=== PATIENT | female | born 1945 | race Two or more races ===

== ENCOUNTER 2021-11-02 14:13 | Outpatient (REF) | payer OTHER, SELFPAY ==
--- NOTE | ~2021-11-02 | MM_ITS ---
EXAMINATION: MM SCREENING DIGITAL BREAST TOMOSYNTHESIS, BILATERAL CLINICAL INFORMATION: Screening. Asymptomatic. The lifetime risk of breast cancer based on the Tyrer-Cuzick Model is 2.5%. COMPARISON: Mammography: February 11, 2019 and studies dating back to November 09, 2009 TECHNIQUE: Digital breast tomosynthesis is performed in both the craniocaudal and mediolateral oblique views along with computer-aided detection (CAD). Synthesized 2D images are generated from the tomosynthesis. FINDINGS: The breasts are heterogeneously dense, which may obscure small masses (ACR BI-RADS breast composition Category c). There are no significant masses, abnormal calcifications, or other abnormalities. There is stable parenchymal pattern with stable calcifications and circumscribed densities. MM/MM tomosynthesis screening BI IMPRESSION: No specific mammographic evidence to suggest malignancy. ASSESSMENT: BI-RADS 1: Negative RECOMMENDATION: Routine annual mammography screening. This patient's information was entered into a reminder system with a target due date for their next mammogram.
== END 2021-11-02 14:14 | disposition home or self-care (01) ==
LOC: HO.MAMMO 14:13
PROVIDERS: PCP Internal Medicine; Visit Provider Internal Medicine
DX: Z12.31 Encounter for screening mammogram for malignant neoplasm of breast (principal)
CPT/HCPCS: 77063; 77067

== ENCOUNTER 2022-11-08 14:02 | Outpatient (REF) | payer OTHER, SELFPAY ==
--- NOTE | ~2022-11-08 | MM_ITS ---
EXAMINATION: MM SCREENING DIGITAL BREAST TOMOSYNTHESIS, BILATERAL CLINICAL INFORMATION: Screening. Asymptomatic. COMPARISON: Mammography: This study is compared with prior exams dating back to 2017. TECHNIQUE: Digital breast tomosynthesis is performed in both the craniocaudal and mediolateral oblique views along with computer-aided detection (CAD). Synthesized 2D images are generated from the tomosynthesis. FINDINGS: There are scattered areas of fibroglandular density (ACR BI-RADS breast composition Category b). There are no significant masses, abnormal calcifications, or other abnormalities. There is a tissue marker present in the left breast from prior benign percutaneous biopsy. There are a few, bilateral, benign calcifications. MM/MM tomosynthesis screening BI IMPRESSION: No mammographic evidence of malignancy. ASSESSMENT: BI-RADS BI-RADS 2 - Benign Findings RECOMMENDATION: Routine annual mammography screening. 1 year F/U This examination should not preclude the clinical evaluation of a suspicious palpable abnormality. This patient's information was entered into a reminder system with a target due date for their next mammogram.
== END 2022-11-08 14:03 | disposition home or self-care (01) ==
LOC: HO.MAMMO 14:02
PROVIDERS: PCP Internal Medicine; Visit Provider Internal Medicine
DX: Z12.31 Encounter for screening mammogram for malignant neoplasm of breast (principal)
CPT/HCPCS: 77063; 77067

== ENCOUNTER → 2022-11-08 14:30 | Outpatient (BNV) | payer OTHER, SELFPAY | PROVIDERS: PCP Internal Medicine; Visit Provider Radiology Diagnostic Radiology | DX: Z12.31 Encounter for screening mammogram for malignant neoplasm of breast (principal) | CPT/HCPCS: 77063; 77067 ==

== ENCOUNTER 2023-07-20 09:43 | Outpatient (REF) | payer OTHER, SELFPAY ==
[2023-07-20 11:33] LABS: Hematocrit 37.3 % (37.0-47.0); Mean Corpuscular HGB Conc 32.2 g/dl (31.0-35.0); Mean Corpuscular Hemoglobin 28.5 pg (27.0-33.0); Mean Corpuscular Volume 88.6 fL (80.0-98.0); Mean Platelet Volume 10.8 fL (9.4-12.3); Platelet Count 296 X10*3/uL (160-400); Red Blood Count 4.21 X10*6/uL (4.20-5.50); Red Cell Distribution Width 13.7 % (11.0-16.0); White Blood Count 9.5 X10*3/uL (4.8-10.8)
[2023-07-20 12:25] LABS: Alanine Aminotransferase 15 U/L (0-31); Albumin Level 3.6 g/dL (3.5-5.0); Alkaline Phosphatase 79 U/L (39-117); Anion Gap 14 (12-20); Aspartate Amino Transferase 20 U/L (5-31); Bilirubin Total 0.4 mg/dL (0.0-1.0); Blood Urea Nitrogen 19 mg/dL (9-16); Calcium 10.3 mg/dL (8.4-10.2); Carbon Dioxide 29 mmol/L (22-29); Chloride 99 mmol/L (96-108); Cholesterol 147 mg/dL (<200); Estimated Glomerular Filt Rate 38; Glucose Random 261 mg/dL (60-115); HDL Cholesterol 46 mg/dL (>40); LDL Cholesterol Calculated 60 mg/dL (<100); Potassium 4.6 mmol/L (3.3-5.1); Sodium 137 mmol/L (135-145); Total Protein 6.8 g/dL (6.5-8.0); Triglycerides 206 mg/dL (<150)
[2023-07-20 14:22] LABS: Microalbum/Creatinine Ratio Ur 1403.9 ug/mg cr (<30)
== END 2023-07-20 09:44 | disposition home or self-care (01) ==
LOC: HO.HHCL 09:43
PROVIDERS: Visit Provider Internal Medicine
DX: I10 Essential (primary) hypertension (principal); E11.9 Type 2 diabetes mellitus without complications; Z79.4 Long term (current) use of insulin
CPT/HCPCS: 36415; 80053; 80061; 82043; 82570; 85027

== ENCOUNTER 2023-11-14 13:35 | Outpatient (REF) | payer OTHER, SELFPAY ==
--- NOTE | ~2023-11-14 | MM_ITS ---
EXAMINATION: MM SCREENING DIGITAL BREAST TOMOSYNTHESIS, BILATERAL CLINICAL INFORMATION: Screening. Asymptomatic. COMPARISON: Mammography: Comparison is made with available priors TECHNIQUE: Digital breast tomosynthesis is performed in both the craniocaudal and mediolateral oblique views along with computer-aided detection (CAD). Synthesized 2D images are generated from the tomosynthesis. FINDINGS: The breasts are heterogeneously dense, which may obscure small masses (ACR BI-RADS breast composition Category c). Left marker clip. There are no significant masses, abnormal calcifications, or other abnormalities. MM/MM tomosynthesis screening BI IMPRESSION: No mammographic evidence of malignancy. ASSESSMENT: BI-RADS BI-RADS 2 - Benign Findings RECOMMENDATION: Routine annual mammography screening. 1 year F/U This examination should not preclude the clinical evaluation of a suspicious palpable abnormality. This patient's information was entered into a reminder system with a target due date for their next mammogram. Electronically signed by: Earlene Marvin DO 12/08/2023 03:17 PM EDT
== END 2023-11-14 13:36 | disposition home or self-care (01) ==
LOC: HO.MAMMO 13:35
PROVIDERS: PCP Internal Medicine; Visit Provider Internal Medicine
DX: Z12.31 Encounter for screening mammogram for malignant neoplasm of breast (principal)
CPT/HCPCS: 77063; 77067

== ENCOUNTER → 2023-11-14 14:00 | Outpatient (BNV) | payer OTHER, SELFPAY | PROVIDERS: PCP Internal Medicine; Visit Provider Internal Medicine | DX: Z12.31 Encounter for screening mammogram for malignant neoplasm of breast (principal) | CPT/HCPCS: 77063; 77067 ==

== ENCOUNTER 2023-11-22 19:38 | Emergency (ER) | payer OTHER, SELFPAY ==
[2023-11-22 20:18] VITALS: BP 148/67; PULSE 74; RESP 20; TEMP 36.7; O2SAT 98; BMI 29.4
--- NOTE | 2023-11-23 01:09 | ED_ITS ---
HPI - Eye Problem General Chief complaint: Eye Problems Stated complaint: swelling around eye Time Seen by Provider: 11/23/23 01:02 Source: patient, family (Granddaughter) and motor vehicle parts interpreter Mode of arrival: ambulatory Limitations: no limitations History of Present Illness ED Provider: DR. Lance HPI Narrative: 78-year-old female brought in by her granddaughter for a concern of lateral periorbital swelling. Patient is scheduled to have cataract surgery on Monday 06:00 patient was instructed to put eyedrops before the surgery neighbor started to notice swelling both eyes, patient otherwise has no blurry vision, no eye pain, no headache, no diplopia. Related Data Allergies Allergy/AdvReac Type Severity Reaction Status Date / Time No Known Allergies Allergy Verified 11/22/23 20:21 [No Known Allergies*] Review of Systems Review of Systems: All other systems are reviewed and are negative Constitutional: Reports as per HPI and Reports no additional constitutional complaints Eyes: Reports as per HPI and Reports no additional eye complaints Reports system reviewed and no additional complaints, except as documented Cardiovascular: Reports as per HPI and Reports no additional cardiovascular complaints Respiratory: Reports as per HPI and Reports no additional respiratory complaints Gastrointestinal: Reports as per HPI and Reports no additional gastrointestinal complaints Genitourinary: Reports no additional female genitourinary complaints Musculoskeletal: Reports no additional musculoskeletal complaints Skin/Breast: Reports system reviewed and no additional complaints, except as docu Psychiatric: Reports no additional psychiatric complaints Endocrine: Reports no additional endocrine complaints Hematologic/Lymphatic: Reports no additional hematologic/lymphatic complaints Allergic/Immunologic: Reports no additional allergic/immunologic complaints Reports system reviewed and no additional complaints, except as documented and Reports Abnormal speech present [facility] Social History Social History Advance Directives: Yes Advance Directives Information Provided: No Advance Directives on File: No Physical Exam Vital Signs: Vital Signs: Last Vital Signs Temp 98.1 F 11/22/23 20:18 Pulse 74 11/22/23 20:18 Resp 20 11/22/23 20:18 BP 148/67 H 11/22/23 20:18 Pulse Ox 98 11/22/23 20:18 O2 Del Method Room Air 11/22/23 20:18 BMI result Body Mass Index 29.4 Vital signs have been reviewed and appear to be correct. Blood pressure elevated. Heart rate normal. Respiratory rate normal. Temperature normal. Oxygen saturation normal. Appearance: Alert. Oriented X3. No acute distress. Head: Normal external exam. Normocephalic. Atraumatic. No [place] signs noted. No raccoon eyes noted Eyes: PERRLA. EOMI. Conjunctiva and sclera normal. Eyelids normal. VA 20/70 bilaterly with correction. ENT: TM's Normal. Pharynx normal. Uvula midline. Moist mucous membranes. No trismus noted. No drooling noted. No muffled voice noted. Neck: Normal inspection. Neck supple. FROM. No adenopathy. Thyroid Normal. No meningeal signs. No neck mass noted. CVS: Normal heart rate and rhythm. Heart sound normal. No murmurs noted. Pulses normal throughout. Respiratory: No respiratory distress. Painless inspiration. Breath sounds normal. No wheezes/rales/rhonchi noted. Chest nontender. No accessory muscle usage noted or decreased air movement noted. Abdomen: Soft and nontender. Bowel sounds normal in all 4 quadrants. No distention noted. No organomegaly noted. No visible injury noted. Back: No CVA tenderness. Full range of motion noted. Skin: Skin warm and dry. Normal skin color. Normal skin turgor. No rashes/lesions/lacerations noted. Extremities: No lower extremity edema. Extremities exhibit normal range of motion. Extremities nontender. Neuro: Oriented X 3. Cranial nerve exam: II-XII are grossly intact No motor deficit. No sensory deficit. Reflexes normal. Course Reevaluation(s) Reevaluation #1: Bilateral periorbital swelling without any visual change patient is scheduled to have right cataract surgery in 2 days, no change in visual acuity. Time: 01:17 Medical Decision Making Differential Diagnosis Differential Diagnoses: The differential diagnosis associated with the presentation includes (Periorbital swelling, visual disturbance.) Admission/Observation Consideration of admission/observation: Escalation of care including admission/observation considered Discharge Plan Discharge Clinical Impression: Periorbital swelling Patient Disposition: Home, Self-Care Instructions: Cataract Removal (DC) Additional Instructions: Keep your appointment with your eye surgeon in 2 days. Print Language: Syriac
[2023-11-23 01:21] VITALS: BP 138/64; PULSE 71; RESP 18; TEMP 36.9; O2SAT 99
== END 2023-11-23 01:27 | disposition home or self-care (01) ==
PROVIDERS: Emergency Provider Emergency Medicine; PCP Internal Medicine
DX: H57.89 Other specified disorders of eye and adnexa (principal)
CPT/HCPCS: 99283

== ENCOUNTER 2024-06-28 08:13 | Outpatient (REF) | payer OTHER, SELFPAY ==
[2024-06-28 12:17] LABS: Alanine Aminotransferase 14 U/L (0-31); Albumin Level 3.7 g/dL (3.5-5.0); Alkaline Phosphatase 86 U/L (39-117); Anion Gap 11 (12-20); Aspartate Amino Transferase 22 U/L (5-31); Bilirubin Total 0.5 mg/dL (0.0-1.0); Blood Urea Nitrogen 16 mg/dL (9-16); Calcium 9.6 mg/dL (8.4-10.2); Carbon Dioxide 29 mmol/L (22-29); Chloride 106 mmol/L (96-108); Cholesterol 125 mg/dL (<200); Estimated Glomerular Filt Rate 49; Glucose Random 105 mg/dL (60-115); HDL Cholesterol 44 mg/dL (>40); LDL Cholesterol Calculated 55 mg/dL (<100); Potassium 4.8 mmol/L (3.3-5.1); Sodium 141 mmol/L (135-145); Triglycerides 131 mg/dL (<150)
[2024-06-28 12:23] LABS: Syphilis Screen Nonreactive (Nonreactive)
[2024-06-28 12:33] LABS: Folate 9.3 ng/mL (> or = 4.0); Vitamin B12 309 pg/mL (200-900)
== END 2024-06-28 08:14 | disposition home or self-care (01) ==
LOC: HO.HHCL 08:13
PROVIDERS: Visit Provider Internal Medicine
DX: I10 Essential (primary) hypertension (principal); E78.2 Mixed hyperlipidemia; R68.89 Other general symptoms and signs; E11.9 Type 2 diabetes mellitus without complications; Z79.4 Long term (current) use of insulin
CPT/HCPCS: 36415; 80053; 80061; 82607; 82746; 86780

== ENCOUNTER 2024-09-27 14:44 | Outpatient (REF) | payer OTHER, SELFPAY ==
--- NOTE | ~2024-09-27 | XR_ITS ---
EXAMINATION: XR HAND, RIGHT CLINICAL INFORMATION: pain and swelling of R fifth finger MCP and PIP COMPARISON: None available. TECHNIQUE: PA, lateral, and oblique views of the right hand. FINDINGS: No fracture, dislocation, or suspicious bone lesion. There is normal alignment. Calcification of the joint capsule of the fifth digit PIP joint, suggesting acute calcific periarthritis. There is a periarticular erosion in the third digit DIP joint with preservation of the joint space. This is nonspecific. No additional erosions are identified. Joint spaces otherwise preserved. Carpal bones are intact and normally aligned. No arthritic changes in the carpus. No blunting of the ulnar styloid. There is mild soft tissue swelling of the fifth MCP joint. Soft tissues are otherwise normal. XR/XR hand RT min 3V IMPRESSION: 1. 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 2. Periarticular erosion in the third digit DIP joint. This is nonspecific. 3. There are no additional erosions are significant arthropathy within the hand and wrist. 4. There is soft tissue swelling overlying the fifth digit MCP joint. Electronically signed by: Zaid Lewis MD 09/27/2024 03:01 PM EDT
== END 2024-09-27 14:45 | disposition home or self-care (01) ==
LOC: HO.HHCX 14:44
PROVIDERS: Visit Provider General Practice
DX: M79.644 Pain in right finger(s) (principal)
CPT/HCPCS: 73130

== ENCOUNTER → 2024-09-27 14:45 | Outpatient (BNV) | payer OTHER, SELFPAY | PROVIDERS: Visit Provider Radiology Diagnostic Radiology | DX: M65.241 Calcific tendinitis, right hand (principal) | CPT/HCPCS: 73130 ==

== ENCOUNTER 2025-01-16 11:21 | Emergency (ER) | payer OTHER, SELFPAY ==
[2025-01-16 11:28] VITALS: BP 145/56; PULSE 80; O2SAT 99
[2025-01-16 11:33] VITALS: BP 162/61; PULSE 72; RESP 14; TEMP 36.4; O2SAT 97; BMI 22.3
[2025-01-16 12:08] LABS: MANUAL DIFF FLAG NO
[2025-01-16 12:11] LABS: Hematocrit 37.5 % (37.0-47.0); Hemoglobin 11.8 g/dl (12.0-16.0); Imm Gran Abs Auto 0.06 X10*3/uL (0.00-0.03); Imm Gran Pct Auto 0.5 % (0.0-0.4); Lymphocytes Absolute Auto 1.4 X10*3/uL (1.2-4.9); Mean Corpuscular HGB Conc 31.5 g/dl (31.0-35.0); Mean Corpuscular Hemoglobin 27.4 pg (27.0-33.0); Mean Corpuscular Volume 87.0 fL (80.0-98.0); NRBC Abs Auto 0.000 X10*3/uL (0.0-0.012); NRBC Pct Auto 0.0 /100WBC (0.0-0.2); Platelet Count 325 X10*3/uL (160-400); Red Blood Count 4.31 X10*6/uL (4.20-5.50); White Blood Count 11.8 X10*3/uL (4.8-10.8)
[2025-01-16 12:24] LABS: Alanine Aminotransferase 11 U/L (0-31); Albumin Level 3.6 g/dL (3.5-5.0); Alkaline Phosphatase 92 U/L (39-117); Anion Gap 11 (12-20); Aspartate Amino Transferase 22 U/L (5-31); Blood Urea Nitrogen 19 mg/dL (9-16); Calcium 9.6 mg/dL (8.4-10.2); Carbon Dioxide 31 mmol/L (22-29); Chloride 103 mmol/L (96-108); Creatinine Clr Calc Pharmacy 32.6; Estimated Glomerular Filt Rate 46; Magnesium 1.6 mg/dL (1.6-2.6); Potassium 4.8 mmol/L (3.3-5.1); Sodium 140 mmol/L (135-145); Total Protein 6.6 g/dL (6.5-8.0)
--- NOTE | 2025-01-16 12:26 | ED_ITS ---
HPI - General Adult General Chief complaint: Nausea/Vomiting/Diarrhea Stated complaint: N/V ?FLU History of Present Illness ED Provider: Josafat Cronin MD HPI narrative: 79-year-old female who comes from home. She tells me that she had a brief episode of significant dizziness vertigo felt like the room was spinning around got sweaty. Had an episode of vomiting and diarrhea. No fall or trauma she says. The patient is a diabetic took her sugar at home it was 80 in the morning she had a small amount of bread and coffee. EMS gave little bit of saline 150 mL and Zofran. Patient is asymptomatic at this time comfortable no recent fever no headache no abdominal pain chest pain no prior vertigo denies ear pain or hearing loss Related Data Previous Rx's ?Medication ?Instructions ?Recorded meclizine 25 mg tablet 25 mg PO DAILY PRN dizziness #7 01/16/25 tabs Allergies Allergy/AdvReac Type Severity Reaction Status Date / Time No Known Allergies (No Known Allergy Verified 01/16/25 11:36 Allergies*) [facility] Social History Social History Advance Directives: Yes Advance Directives Information Provided: No Advance Directives on File: No Physical Exam ED Exam Exam: GENERAL: Well appearing. No apparent distress. Alert. HEAD/NECK: Normal to inspection. Neck supple. No cervical lymphadenopathy. EYES: Normal to inspection. Sclera non-icteric. ENMT: External nose normal. RESPIRATORY: Respiratory effort normal. Lungs clear to auscultation bilaterally. CARDIOVASCULAR: Regular rate. Normal rhythm. No murmur. No rubs. GI: Soft, non-tender, non-distended. No rebound or guarding. No masses palpable. No hepatosplenomegaly. SKIN: No jaundice. NEUROLOGICAL: Alert. PSYCHIATRIC: Alert. Appearance appropriate for situation. Attitude cooperative. OTHER: Comprehensive Neuro exam: Face symmetric, tongue midline, strong symmetric eye closure, pupils symmetric and reactive to light, intact sensation to the face throughout, intact strong face deviation and shoulder shrug. Sensation intact to light touch throughout * 5 out of 5 strength in bilateral upper extremities, 5 and 5 strength in lower extremities Vital Signs: Vital Signs - 24 hr 01/16/25 11:33 01/16/25 14:35 Temperature 97.6 F 97.6 F Pulse Rate 72 72 Respiratory Rate 14 14 Blood Pressure 162/61 H 162/61 H Pulse Oximetry 97 97 Oxygen Delivery Method Room Air Room Air BMI result Body Mass Index 22.3 Medical Decision Making Medical Decision Making MDM Narrative: Medical Decision Making: [age] female with transient dizziness associated with vomiting and diarrhea. Patient looks quite well and is asymptomatic now. No hearing loss tinnitus focal neurologic symptoms. No nystagmus or ataxia. Able to walk around. Seems like transient resolved but abrupt onset and significant vertigo consistent with peripheral vertigo etiology. Preliminary Favored Differential Diagnosis: Peripheral vertigo, unlikely central vertigo , vasovagal, dysrhythmia, electrolyte derangement or dehydration among additional considered etiologies Testing Interpreted Independently: ?Sinus rhythm rate 68 QTC 418. No ischemic changes Radiology or Lab testing Results Reviewed: ?See below for details Consults: ?See below for details Independent Historians/External Chart Reviews: ?See below for details Social Determinants of Health Impacting MDM/Planning: ?See below for details Lab Data 01/16/25 12:04 01/16/25 12:04 Labs: Lab Results 01/16/25 Range/Units 12:04 WBC 11.8 H (4.8-10.8) X10*3/uL RBC 4.31 (4.20-5.50) X10*6/uL Hgb 11.8 L (12.0-16.0) g/dl Hct 37.5 (37.0-47.0) % MCV 87.0 (80.0-98.0) fL MCH 27.4 (27.0-33.0) pg MCHC 31.5 (31.0-35.0) g/dl RDW 13.6 (11.0-16.0) % Plt Count 325 (160-400) X10*3/uL MPV 10.1 (9.4-12.3) fL Immature Gran % (Auto) 0.5 H (0.0-0.4) % Neut % (Auto) 82.8 H (45-73) % Lymph % (Auto) 11.8 L (20-40) % Hendry % (Auto) 3.7 (2-11) % Eos % (Auto) 0.8 (0-4) % Baso % (Auto) 0.4 (0-2) % Lymph # (Auto) 1.4 (1.2-4.9) X10*3/uL Hendry # (Auto) 0.4 (0.1-1.2) X10*3/uL Eos # (Auto) 0.1 (0.0-0.4) X10*3/uL Baso # (Auto) 0.1 (0.0-0.2) X10*3/uL Abs Immat Gran (auto) 0.06 H (0.00-0.03) X10*3/uL Absolute Neuts (auto) 9.7 H (2.0-8.3) x10*3/uL Absolute Nucleated RBC 0.000 (0.0-0.012) X10*3/uL Nucleated RBC % (auto) 0.0 (0.0-0.2) /100WBC Sodium 140 (135-145) mmol/L Potassium 4.8 (3.3-5.1) mmol/L Chloride 103 (96-108) mmol/L Carbon Dioxide 31 H (22-29) mmol/L Anion Gap 11 L (12-20) BUN 19 H (9-16) mg/dL Creatinine 1.14 (0.5-1.4) mg/dL Estim Creat Clear Calc 32.6 Estimated GFR 46 Random Glucose 157 H (60-115) mg/dL Calcium 9.6 (8.4-10.2) mg/dL Magnesium 1.6 (1.6-2.6) mg/dL Total Bilirubin 0.3 (0.0-1.0) mg/dL AST 22 (5-31) U/L ALT 11 (0-31) U/L Alkaline Phosphatase 92 (39-117) U/L Total Protein 6.6 (6.5-8.0) g/dL Albumin 3.6 (3.5-5.0) g/dL Influenza Type A (PCR) NEGATIVE (Negative) Influenza Type B (PCR) NEGATIVE (Negative) RSV RNA Qual (PCR) NEGATIVE (Negative) SARS-CoV-2 RNA (RT-PCR) NEGATIVE (Negative) Discharge Plan Discharge Clinical Impression: Dehydration, Vertigo Patient Disposition: Home, Self-Care Instructions: Dehydration (DC), Vertigo (ED) Additional Instructions: Call your primary doctor for follow up. Take meclizine only as significant vertigo. Rest in a dark room and after the meclizine you stay hydrated. If you develop inability to walk off balance severe headache return back to emergency department. Prescriptions: New meclizine 25 mg tablet 25 mg PO DAILY PRN (Reason: dizziness) Qty: 7 0RF Interventions: ED Discharge Assessment Last Done: 01/16/25 14:35 Discharge Date/Time: 01/16/25 14:36 Print Language: Nepali
--- NOTE | 2025-01-16 12:28 | ECG_ITS ---
Test Reason : NEAR SYNCOPE Blood Pressure : */* mmHG Vent. Rate : 68 BPM Atrial Rate : 68 BPM P-R Int : 128 ms QRS Dur : 70 ms QT Int : 394 ms P-R-T Axes : * -14 -18 degrees QTcB Int : 418 ms Normal sinus rhythm Nonspecific ST and T wave abnormality Abnormal ECG When compared with ECG of 19-Feb-2015 09:55, No significant change was found Referred By: Josafat Cronin Electronically Signed By: EULALIA SANTOS
[2025-01-16 12:48] LABS: Resp Syncy Virus RNA Qual PCR NEGATIVE (Negative); SARS COV2 PCR INHOUSE NEGATIVE (Negative)
[2025-01-16 14:35] VITALS: BP 162/61; PULSE 72; RESP 14; TEMP 36.4; O2SAT 97
--- OUTSIDE RECORDS SUMMARY | 2025-01-16 14:58 | XMS_ITS | Encounter Summary ---
Author Organization [employer] Address [address] [place] [address] Care Team Providers Care Lead Ingot Molder Name Role Phone Bradly Craig MD Primary Care Provide r Margaret Murphy PharmD Unavailable [phone] Reason for Visit * Reason Comments Med Refill Encounter Details Date Type Department Care Team ([facility] st Contact Info) Description 05/10/2024 Refill [facility] [address] [place], [place] [phone] Bradly Craig MD [address] [place], [place] [phone] Type 2 diabetes mellitus without complication, with long-term current use of insulin ([facility]) Social History Tobacco Use Types Packs/Day Years Used Date Smoking Tobacco: Never Passive Smoke Exposure: Never Smokeless Tobacco: Never Depression Answer Date Recorded Patient Health Questionnaire-9 Score 0 05/14/2024 Patient Health Questionnaire-9 Score 0 05/14/2024 Last PHQ-9: Questionnaire Data Not on file 0 05/14/2024 Housing Stability Answer Date Recorded What is your housing situation today? I have georgina corral 07/20/[address] you li ve. Do you have problems with any of the following? None of the above 07/20/2023 Food Insecurity Answer Date Recorded Within the past 12 months, y ou worried that your food would run out before you got money to buy more: Never True 07/20/2023 Within the past 12 months,th e food you bought just didn't last and you didn't have enough money to get more: Never True 04/2023 Transportation Answer Date Recorded In the past 12 months, has l ack of transportation kept you from medical appts, meetings, work or from getting things needed for daily living? No 07/20/2023 Utilities Answer Date Recorded In the past 12 months, has t he electric, gas, oil or water company threatened to shut off services in your home? No 07/20/2023 Depression Answer Date Recorded Patient Health Questionnaire-2 Score 0 05/14/2024 Internet Access Answer Date Recorded Internet Access Q1 No 05/14/2024 Internet Access Q2 Not on file 05/14/2024 Comments Unknown Sex and Gender Information Value Date Recorded Sex Assigned at Female 01/17/2022 10:14 AM EDT Legal Sex Female 10:14 AM EDT Gender Identity Female 01/17/2022 10:14 AM EDT Sexual Orientation Choose not to disclose 2021 10:14 AM EDT documented as of this encounter Plan of Treatment Not on file documented as of this encounter Visit Diagnoses Diagnosis Type 2 diabetes mellitus without complication, with long-term current use of insulin (HCC) documented in this encounter Additional Health Concerns Assessment Noted Time PHQ-9 Depression Total Score: 0 07/20/19 24 10:05 AM EDT documented as of this encounter Care Teams Lead Ingot Molder Relationship Specialty Start Date End Date Bradly Craig MD [address] [place] [address] PCP - General Internal Medicine 10/30/13 Margaret Murphy PharmD [address] [place] [address] Pharmacist Internal Medicine 04/22/24 12/10/24 documented as of this encounter
--- OUTSIDE RECORDS SUMMARY | 2025-01-16 14:58 | XMS_ITS | Patient Health Record ---
Author Organization [facility] Address [address] [place] [address] Care Team Providers Care Tube Draw Helper Name Role Phone Kennedi Mendoza MD, Bradly Primary Care Provide r Seth Rasmussen Unavailable [phone] Reason For Referral No Information Medications Medication SIG (Take, Route, Frequency, Duration) Notes Start Date End Date Status Oyster Shell Calcium + D 500-125 MG-IU 1 tablet with food Orally Once a day Active metFORMIN HCl 500 MG 1 tablet with meals Orally Twice a day Active Aspir-81 81 MG 1 tablet Orally Once a day Active Atenolol 50 MG 1 tablet Orally Once a day Active Lisinopril 40 MG 1 tablet Orally Once a day Active Simvastatin 40 MG 1 tablet in the evening Orally Once a day Active hydroCHLOROthiazide 25 MG 1 tablet in th e morning Orally Once a day Active NovoLog Mix 70/30 PenFill (70-30) 100 UNIT/ML as directed Subcutaneous QD Active Naproxen 500 MG 1 tablet Orally prn Active Immunizations Vaccine Route Administration Date Status Comme nts Flu vaccine no Preserv 3 and > Unknown 01/06/2016 Admin istered Social History Tobacco Use: Social History Observation Description Date Details (start date - stop date) Never Smoker NA - NA Tobacco Use/Smoking Question Answer Notes Patient is a nonsmoker Alcohol Screen Question Answer Notes Did you have a drink containing alcohol in the p ast year? No Points 0 Interpretation Negative Section Notes: Nonsmoker; sig alcohol Problems Problem Type SNOMED Code ICD Code Onset Dates Problem Status W/U Status Risk Notes Problem Screening for malignant neoplasm of colon (762917232) Encounter for screening for malignant neoplasm of colon (Z12.11) Active confirmed Problem Long-term current use of antiplatelet drug (854300139847954) Long-term use of aspirin therapy (Z79.82) Active confirmed Plan Of Treatment Future Test Test Name Order Date COLONOSCOPY 10/19/2016 Insurance Providers Payer Name Payer Address Payer Phone Subscriber Number Group Number Insured Name Patient Relationship to Insured Coverage Start Date Coverage End Date MEDICARE OF [place] [address] [place] [id number] BRIAN INGRAM Self - patient is the insured [facility] [address] [place] [address] [id number] JUAN JOSE BRIAN Self - patient is the insured Medical (General) History Medical History History ICD Code Denies VA,CVA,Lung disease,renal disease IDDM Hypertension Colonoscopy 04/2005--no polyps--diverticu losis and internal hemorrhoids Hyperlipidemia Surgical History Surgery Date(Month/Year) Breast biopsy---benign
--- OUTSIDE RECORDS SUMMARY | 2025-01-16 14:58 | XMS_ITS | Encounter Summary ---
Author Organization [email or web address] Address [address] [place] [address] Care Team Providers Care Asphalt Coater Name Role Phone Bradly Craig MD Primary Care Provide r Margaret Murphy PharmD Unavailable [phone] Encounter Details Date Type Department Care Team (Late st Contact Info) Description 03/22/2022 Orders Only [facility] [address] [place], [place] [phone] Sonia Branham LPN Social History Tobacco Use Types Packs/Day Years Used Date Smoking Tobacco: Never Assessed Comments Unknown Sex and Gender Information Value Date Recorded Sex Assigned at Female 01/17/2022 10:14 AM EDT Legal Sex Female 10:14 AM EDT Gender Identity Female 01/17/2022 10:14 AM EDT Sexual Orientation Choose not to disclose 2021 10:14 AM EDT documented as of this encounter Plan of Treatment Not on file documented as of this encounter Visit Diagnoses Not on filedocumented in this encounter Care Teams Asphalt Coater Relationship Specialty Start Date End Date Bradly Craig MD [address] [place] [id number] PCP - General Internal Medicine 10/30/13 Margaret Murphy, TonyaD [address] [place] [address] Pharmacist Internal Medicine 04/22/24 12/10/24 documented as of this encounter
--- OUTSIDE RECORDS SUMMARY | 2025-01-16 14:58 | XMS_ITS | Encounter Summary ---
Author Organization [employer] Address [address] [place] [address] Care Team Providers Care Employee Service Officer Name Role Phone Bradly Craig MD Primary Care Provide r Margaret Murphy PharmD Unavailable [phone] Encounter Details Date Type Department Care Team (Late st Contact Info) Description 08/30/2022 Orders Only [facility] [address] [place], [place] [id number] Sonia Branham LPN Social History Tobacco Use Types Packs/Day Years Used Date Smoking Tobacco: Never Smokeless Tobacco: Never Depression Answer Date Recorded Patient Health Questionnaire-9 Score 0 04/28/2022 Depression Answer Date Recorded Patient Health Questionnaire-2 Score 0 04/28/2022 Comments Unknown Sex and Gender Information Value Date Recorded Sex Assigned at Female 01/17/2022 10:14 AM EDT Legal Sex Female 10:14 AM EDT Gender Identity Female 01/17/2022 10:14 AM EDT Sexual Orientation Choose not to disclose 2021 10:14 AM EDT COVID-19 Exposure Response Date Recorded In the last 10 days, have ammy esposito been in contact with someone who was confirmed or suspected to have Coronavirus/COVID-19? No / Unsure 08/23/2022 9:50 AM EDT documented as of this encounter Plan of Treatment Not on file documented as of this encounter Visit Diagnoses Not on filedocumented in this encounter Additional Health Concerns Assessment Noted Time PHQ-9 Depression Total Score: 0 04/28/19 23 9:33 AM EST documented as of this encounter Care Teams Employee Service Officer Relationship Specialty Start Date End Date Bradly Craig MD [address] [place] [address] PCP - General Internal Medicine 10/30/13 Margaret Murphy PharmD [address] [place] [address] Pharmacist Internal Medicine 04/22/24 12/10/24 documented as of this encounter
--- OUTSIDE RECORDS SUMMARY | 2025-01-16 14:58 | XMS_ITS | Clinical Summary ---
Author Organization [employer] Address [address] [place] [address] Care Team Providers Care Log Preparer Name Role Phone Bradly Craig MD Primary Care Provide r Allergies Active Allergy Reactions Criticality Noted Date Comments Alendronate Unknown Medications prednisoLONE acetate (Pred-Forte) 1 % ophthalmic suspension INSTILL 1 DROP IN AFFECTED EYE(S) THREE TIMES DAILY STARTING 2 DAYS BEFORE SURGERY. 4 Active ketorolac (Acular) 0.5 % ophthalmic solution INSTILL 1 DROP IN RIGHT EYE THREE TIMES DAILY STARTING 2 DAYS BEFORE SURGERY 4 Active Lancets (OneTouch Delica Plus [id number]) miscIndications:Ty pe 2 diabetes mellitus without complication, unspecified whether manager terminal insulin use TEST BLOOD SUGAR THREE TIMES DAILY 100 each 11 4 Active metFORMIN XR (Glucophage-XR) 500 MG 24 hr tablet TAKE 1 TABLET BY MOUTH TWICE DAILY IN THE MORNING AND IN THE EVENING WITH FOOD 180 tablet 3 5 Active atorvastatin (Lipitor) 20 MG tabletIndications: Mixed hyperlipidemia TAKE 1 TABLET BY MOUTH EVERY MORNING 30 tablet 5 5 Active Blood Pressure kitIndications:Ess ential hypertension Check BP once a week 1 kit 5 Active amLODIPine (Norvasc) 5 MG tabletIndications: Essential hypertension Take 1 tablet (5 mg) by mouth in the morning. 30 tablet 6 5 Active Alcohol Swabs (Alcohol Prep) 70 % padsIndications:Ty pe 2 diabetes mellitus without complication, without long-term current use of insulin (HCC) TEST BLOOD SUGAR TWICE DAILY 100 each 11 5 Active Blood Pressure Monitoring (Omron 3 Series BP Monitor) device USE TO CHECK BLOOD PRESSURE ONCE A WEEK DIRECTED 5 Active Calcium Carb-Cholecalcifer ol (Oyster Shell Calcium w/D) 500-5 MG-MCG tabletIndications: Osteopenia, unspecified location TAKE 1 TABLET BY MOUTH TWICE DAILY IN THE MORNING AND IN THE EVENING 60 tablet 3 5 Active metoprolol succinate XL (Toprol-XL) 100 MG 24 hr tabletIndications: Essential hypertension Take 1 tablet (100 mg) by mouth Once per day. Do not crush or chew. 30 tablet 11 5 Active insulin degludec (Tresiba FlexTouch) 100 UNIT/ML injectionIndicatio ns:Type 2 diabetes mellitus without complication, with long-term current use of insulin ([facility]) Inject 8 Units under the skin at bedtime. 15 mL 1 5 Active glucose blood (OneTouch Verio) test stripIndications:T ype 2 diabetes mellitus without complication, with long-term current use of insulin ([facility]) Test blood sugar 3 times a day 100 each 11 5 026 Active insulin pen needle 32G x 4 mm misc Use to inject insulin 1 times daily 100 each 3 5 Active lisinopril 40 MG tabletIndications: Essential hypertension Take 1 tablet (40 mg) by mouth Once per day. 90 tablet 3 5 Active Blood Glucose Monitoring Suppl (Accu-Chek Guide) w/Device kit Check glucose TID 1 kit 5 Active glucose blood (Accu-Chek Guide Test) test strip Check Glucose TID 100 each 12 5 Active Accu-Chek Softclix Lancets lancets Use as instructed 100 each 12 5 Active Active Problems Problem Noted Date Diagnosed Date Finger pain, right 10/01/2024 Assessment & Plan (10/01/2024 8:45 AM EDT): Patient with xray demonstrative of acute calcific periarthritis. This is a self-limited condition and can be treated with OTC analgesia. She was also prescribed Bactrim in case of secondary infection. Long-term use of aspirin therapy 09/27/2024 Forgetfulness 05/14/2024 Assessment & Plan (05/14/2024 10:30 AM EST): We received notification from [facility] managed care director that patient was unable to recall 3 objects during her MME Plan: B12, Folate, Neurology evaluation CKD (chronic kidney disease) 11/17/2023 Preventative health care 04/27/2022 Assessment & Plan (07/20/2023 9:32 AM EDT): Mammogram: 11/02/2021 Normal Pap Smear: 07/23/12 given age she chooses not to continue Colonoscopy: 05/16/2005 Dr Wiseman Diverticulosis and Hemorrhoids, She was seen by Dr Wiseman 10/19/2016 for consideration of repeat Colorectal cancer screen, but pt REFUSED. Assessment & Plan (04/27/2022 5:20 PM EST): Mammogram: 11/02/2021 Normal Pap Smear: 07/23/12 given age she chooses not to continue Colonoscopy: 05/16/2005 Dr Wiseman Diverticulosis and Hemorrhoids, She was seen by Dr Wiseman 10/19/2016 for consideration of repeat Colorectal cancer screen, but pt REFUSED. Osteopenia 04/13/2017 Assessment & Plan (04/27/2022 5:18 PM EST): On Oscal plus vitamin D Essential hypertension 03/03/2015 Assessment & Plan (08/16/2024 11:30 AM EDT): Pt here for a f/u BP currently controlled She is on a regimen of: Metoprolol XL 100 mg po daily, Amlodipine 10 mg po daily and Lisinopril 40 mg po daily Most recent electrolytes, Bun and Creatinine were wnl. Lab Results Component Value Date NA 141 06/28/2024 NA 137 07/20/2023 K 4.8 06/28/2024 K 4.6 07/20/2023 CL 106 06/28/2024 CL 99 07/20/2023 BUN 16 06/28/2024 BUN 19 (H) 07/20/2023 CREATININE 1.09 06/28/2024 CREATININE 1.35 07/20/2023 patient advised to adhere to a low sodium diet, encouraged about medication compliance, counseled about weight loss. Plan: lower Amlodipine to 5 mg po daily due to c/o LE edema F/u 3 months Assessment & Plan (05/14/2024 10:26 AM EST): Pt here for a f/u BP currently controlled She is on a regimen of: Metoprolol XL 100 mg po daily, Amlodipine 10 mg po daily and Lisinopril 40 mg po daily Most recent electrolytes, Bun and Creatinine done on: 07/20/2023 were wnl. Lab Results Component Value Date NA 137 07/20/2023 NA 142 05/13/2022 K 4.6 07/20/2023 K 4.0 05/13/2022 CL 99 07/20/2023 CL 102 05/13/2022 BUN 19 (H) 07/20/2023 BUN 21 05/13/2022 CREATININE 1.35 07/20/2023 CREATININE 1.11 (H) 05/13/2022 Will repeat patient advised to adhere to a low sodium diet, encouraged about medication compliance, counseled about weight loss. Plan: Continue current regimen F/u 3 months Assessment & Plan (11/17/2023 6:27 PM EDT): BP today 148/70 -advised to check home BP at next apt And bring to next apt w PCP -apt w PCP 11/28/2023 scheduled already -will need to eval lisinopril use been currently px as 40 mg BID ? Assessment & Plan (08/31/2023 11:04 AM EDT): Pt here for a f/u BP currently uncontrolled She is on a regimen of: Atenolol 100 mg po daily, Hctz 25 mg po daily, Amlodipine 2.5 mg po daily and Lisinopril 40 mg po BID. Most recent electrolytes, Bun and Creatinine done on: 07/20/2023 were wnl. patient advised to adhere to a low sodium diet, encouraged about medication compliance, counseled about weight loss. Plan: Increase Amlodipine to 5 mg po daily. Pt referred to [facility] previously F/u 6 weeks Assessment & Plan (07/20/2023 9:26 AM EDT): Pt here for a f/u BP currently uncontrolled She is on a regimen of: Atenolol 100 mg po daily, Hctz 25 mg po daily and Lisinopril 40 mg po BID. Most recent electrolytes, Bun and Creatinine done on: 05/13/2022 were wnl.Today will order a repeat BMP patient advised to adhere to a low sodium diet, encouraged about medication compliance, counseled about weight loss. Plan: Obtain BMP, Refer [facility] for HTN. Add Amlodipine 2.5 mg po daily F/u 6 weeks Assessment & Plan (08/23/2022 10:17 AM EDT): Pt here for a f/u BP currently uncontrolled She is on a regimen of: Atenolol 75 mg po daily, Hctz 25 mg po daily and Lisinopril 40 mg po BID. Most recent electrolytes, Bun and Creatinine done on: 05/13/2022 were wnl. patient advised to adhere to a low sodium diet, encouraged about medication compliance, counseled about weight loss. Plan: Increase Atenolol to 100 mg po daily F/u 4 weeks Assessment & Plan (07/19/2022 11:08 AM EDT): Pt here for a f/u BP currently uncontrolled She is supposed to be on a regimen of: Atenolol 75 mg po daily, Hctz 25 mg po daily and Lisinopril 40 mg po BID. Most recent electrolytes, Bun and Creatinine done on: 05/13/2022 were wnl. Pt brought up to my attention that his med box does not have the 75 mg of Atenolol ( 1.5 tabs) only 1 tab, I reviewed his med box and that was indeed the case. I contacted our Pharmacy and they agreed to see patient today to rectify patient advised to adhere to a low sodium diet, encouraged about medication compliance, counseled about weight loss. Plan: No changes until she starts taking the 75 mg of Atenolol F/u 1 month Assessment & Plan (04/28/2022 9:59 AM EST): Pt here for a f/u BP currently uncontrolled She is on a regimen of: Atenolol 50 mg po daily, Hctz 25 mg po daily and Lisinopril 40 mg po BID. Plan: Increase Atenolol to 75 mg po daily Most recent electrolytes, Bun and Creatinine done on: 12/20/2021 were wnl. Will repeat patient advised to adhere to a low sodium diet, encouraged about medication compliance, counseled about weight loss. F/u 1 month Depressive disorder 11/08/2011 Adhesive capsulitis of shoulder 08/31/2011 Assessment & Plan (04/27/2022 5:19 PM EST): Pt was seen by Orthopaedic specialist on 01/04/2012 who diagnosed her with adhesive capsulitis and recommended PT, Pt underwent a manipulation under anesthesia on 04/10/2012. she was seen last by her orthopedic surgeon on 04/23/2012 Hyperlipidemia 08/31/2011 Assessment & Plan (08/16/2024 11:30 AM EDT): Pt here for a f/u Pt with elevated lipids. Most recent lipid profile from: Lab Results Component Value Date TRIG 131 06/28/2024 TRIG 206 (H) 07/20/2023 CHOL 125 06/28/2024 CHOL 147 07/20/2023 LDLCHOLCAL 55 06/28/2024 LDLCHOLCAL 60 07/20/2023 HDL 44 06/28/2024 HDL 46 07/20/2023 Currently on a regimen of: Atorvastatin 40 mg po qhs. Plan: Continue current regimen advised to try to adhere to a low cholesterol diet, counseled and educated about diet and exercise, Patient encouraged to come up with a personal goal for weight loss. Assessment & Plan (05/14/2024 10:28 AM EST): Pt here for a f/u Pt with elevated lipids. Most recent lipid profile from: Lab Results Component Value Date TRIG 206 (H) 07/20/2023 TRIG 113 05/13/2022 CHOL 147 07/20/2023 LDLCHOLCAL 60 07/20/2023 HDL 46 07/20/2023 Currently on a regimen of: Atorvastatin 40 mg po qhs. Plan: Repeat Lipid profile advised to try to adhere to a low cholesterol diet, counseled and educated about diet and exercise, Patient encouraged to come up with a personal goal for weight loss. Assessment & Plan (07/20/2023 9:28 AM EDT): Pt here for a f/u Pt with elevated lipids. Most recent lipid profile from: 12/20/2021 shows a total cholesterol of: 125 triglycerides of: 166 HDL of: 49 and LDL of: 52 Currently on a regimen of: Simvastatin 40 mg po qhs. Plan: Stop Simvastatin, start Atorvastatin 20 mg po daily ( I am starting patient on Amlodipine ) advised to try to adhere to a low cholesterol diet, counseled and educated about diet and exercise, Patient encouraged to come up with a personal goal for weight loss. Assessment & Plan (04/27/2022 5:18 PM EST): Pt here for a f/u Pt with elevated lipids. Most recent lipid profile from: 12/20/2021 shows a total cholesterol of: 125 triglycerides of: 166 HDL of: 49 and LDL of: 52 Currently on a regimen of: Simvastatin 40 mg po qhs. Given good control, will continue with current regimen. advised to try to adhere to a low cholesterol diet, counseled and educated about diet and exercise, Patient encouraged to come up with a personal goal for weight loss. Type 2 diabetes mellitus 08/31/2011 Assessment & Plan (08/16/2024 11:28 AM EDT): Pt is here for a f/u DM controlled she is on a regimen of: Tresiba Flex Touch 10 units sc q pm and Metformin XR 500 mg 1 tab po BID She did not bring her glucometer Hgb A1c 08/16/2024: 6.9 from 7.2 Plan: Continue current regimen Eye exam was last done on: 10/12/2023 Microalbumin checked on: 12/20/2021 was: 93.2 Pt is on an LUIS ALBERTO inhibitor. Foot check risk of zero Pt reports compliance with Asa 81 mg po daily Pt advised to: adhere to diabetic diet Check your blood sugars regularly Check your feet on a daily basis 3 months f/u Assessment & Plan (05/14/2024 11:04 AM EST): Pt is here for a f/u VNA mentioned pt has had low fastings as low as 51 she is on a regimen of: Tresiba Flex Touch 12 units sc q pm and Metformin XR 500 mg 1 tab po BID She did not bring her glucometer Hgb A1c 05/14/2024: 7.2 from 7.8 Plan: Continue current regimen, Continue to follow with [facility]. Lower Tresiba to 10 units subcutaneous qp,m Eye exam was last done on: 10/12/2023 Microalbumin checked on: 12/20/2021 was: 93.2 Pt is on an LUIS ALBERTO inhibitor. Foot check risk of zero Pt reports compliance with Asa 81 mg po daily Pt advised to: adhere to diabetic diet Check your blood sugars regularly Check your feet on a daily basis 3 months f/u Assessment & Plan (11/17/2023 6:28 PM EDT): -today capillary Hb1AC 8.8, CBG 263 , per pt at home CBGs in fasting max is 130 in fasting -increase humulin to 22 u in am<---20 and to 20 u in pm from 18 u -if GFR falls < 30 will need to dc metformin -apt w PCP 11/28/2023 scheduled already Assessment & Plan (08/31/2023 11:10 AM EDT): Pt is here for a f/u Glucometer today shows BG average of 111 she is on a regimen of: Novolin 70/30 16 units sc in am and 18 units sc q pm and Metformin XR 500 mg 1 tab po BID Hgb A1c 07/20/2023: 7.8 Plan: Continue current regimen Eye exam was last done on: 06/15/2017 Microalbumin checked on: 12/20/2021 was: 93.2 Pt is on an LUIS ALBERTO inhibitor. Foot check risk of zero Pt reports compliance with Asa 81 mg po daily Pt advised to: adhere to diabetic diet Check your blood sugars regularly Check your feet on a daily basis 3 months f/u Assessment & Plan (07/20/2023 9:30 AM EDT): Pt is here for a f/u Glucometer today shows BG average of 113 she is on a regimen of: Novolin 70/30 16 units sc in am and 18 units sc q pm and Metformin XR 500 mg 1 tab po BID Hgb A1c 07/20/2023: 7.8 Plan: Obtain BMP if GFR ok will increase the dose of the Metformin Eye exam was last done on: 06/15/2017 Microalbumin checked on: 12/20/2021 was: 93.2 Pt is on an LUIS ALBERTO inhibitor. Foot check risk of zero Pt reports compliance with Asa 81 mg po daily Pt advised to: adhere to diabetic diet Check your blood sugars regularly Check your feet on a daily basis 3 months f/u Assessment & Plan (04/28/2022 10:02 AM EST): Pt is here for a f/u Glucometer today shows BG average of 99 she is on a regimen of: Novolin 70/30 16 units sc in am and 18 units sc q pm and Metformin XR 500 mg 1 tab po BID Hgb A1c 04/27/2022 was 7.6 Plan: Obtain BMP if GFR ok will increase the dose of the Metformin Eye exam was last done on: 06/15/2017 Microalbumin checked on: 12/20/2021 was: 93.2 Pt is on an LUIS ALBERTO inhibitor. Foot check risk of zero Pt reports compliance with Asa 81 mg po daily Pt advised to: adhere to diabetic diet Check your blood sugars regularly Check your feet on a daily basis 4 month f/u Resolved Problems Problem Noted Date Diagnosed Date Resolved Date Preop examination 11/17/2023 10/01/2024 Assessment & Plan (11/17/2023 6:26 PM EDT): RCRI is 1 ( for DM w insulin use) going for minimal risk procedure -last labs 07/2023 CBC wnl,Chem: cr 1.35, GFR 38 ,hb1AC 7.8 -today capillary Hb1AC 8.8, CBG 263 , per pt at home CBGs in fasting max is 130 No contraindications for surgery at this time -can take all meds am of surgery w sip of water, ok ASA unless told different by surgeon,if needed can stop a week before procedure -avoid NSAIDS for CKD and 7 days before surgery -Explained pt that if procedure will be done in fasting that Humulin to use half dose night before of surgery and hold dose am of surgery -Faxing this preop note to surgeon Encounters Date Type Department Care Team Description 12/20/2024 Refill [facility] [address] [facility], [place] [phone] Bradly Craig MD 12/11/2024 Refill [facility] [address] [facility], [place] [phone] Margaret Murphy PharmD Essential hypertension; Type 2 diabetes mellitus without complication, with long-term current use of insulin ([facility]) 12/11/2024 Travel 12/04/2024 Refill [facility] [address] [facility], [place] [phone] Margaret Murphy PharmD Essential hypertension 11/03/2024 Refill [facility] [address] [place], [place] [phone] Bradly Craig MD Osteopenia, unspecified location from Last 3 Months Immunizations Immunization Administration Dates Next Due Hep B, adult 07/14/2016 Influenza High-dose Quadriva lent Preservative Free 01/11/2022,01/01/2021,01/08/2020 Influenza injectable quadriv alent IIV4 with preservative 12/24/2018,04/13/2017 Influenza injectable quadriv alent preservative free 03/01/2018,12/24/2015,12/11/2014 Influenza, High Dose Seasona l, Preservative Free 12/11/2024 Influenza, IIV3, injectable 12/31/2013 Influenza, Split (incl. farhad fied surface antigen) 01/06/2016,01/09/2013,01/06/2012 Pneumococcal Conjugate PCV 13 03/06/2015 Pneumococcal Polysaccharide PPSV23 04/13/2017, TD (adult), 2 Lf tetanus tox oid, preservative free, adsorbed 04/01/2011,05/21/1997,02/13/1996 Tdap 02/01/2022 Zoster, Recombinant 05/06/2022 Zoster, live 05/01/2014 Social History Tobacco Use Types Packs/Day Years Used Date Smoking Tobacco: Never Passive Smoke Exposure: Never Smokeless Tobacco: Never Tobacco Cessation:Counseling Given: Not Answered Alcohol Use Standard Drinks/Week Comments Never 0 (1 standard drink = 0.6 oz pur e alcohol) Depression Answer Date Recorded Patient Health Questionnaire-9 [...] not to disclose 2021 10:14 AM EDT Last Filed Vital Signs Vital Sign Reading Time Taken Comments Blood Pressure 134/64 12/11/2024 9:40 AM EDT Pulse 78 12/11/2024 9:40 AM EDT Temperature 36.6 C (97.9 F) 09/27/2024 2:16 PM EDT Respiratory Rate 20 09/27/2024 2:16 PM EDT Oxygen Saturation 98% 09/27/2024 2:16 PM EDT Inhaled Oxygen Concentration - - Weight 55.2 kg (121 lb 9.6 oz) 09/27/2024 2:16 P M EDT Height 157.5 cm (5' 2 ) 09/27/2024 2:16 PM EDT Body Mass Index 22.24 09/27/2024 2:16 PM EDT Plan of Treatment Health Maintenance Due Date Last Done Comments Diabetes: Foot Exam 1957 Eye Exam 1957 Hepatitis C Screening 1965 Hepatitis B Vaccines (2 of 3 - 19+ 3-dose series) 08/11/2016 07/14/2016 RSV Patients and Patients Aged 60 years or older (1 - 1-dose 75+ series) 2022 Zoster Vaccines (3 of 3) 07/01/2022 05/06/2022, 04/20 Diabetes: Urine Protein Screening 07/19/2024 07/20/2023, 12/20/2021 Mammogram 11/13/2024 11/14/2023, 10/19, 11/08/2022, Additional history exists COVID-19 Vaccine ( season) 2024 02/06/2023, 05/06/2021, 11/03/2020, Additional history exists Diabetes: Hemoglobin A1C 02/16/2025 025, 05/14/2024, 11/17/2023, Additional history exists Alcohol/Substance Use Screening 05/14/2025 05/14/2024 Depression Screening 05/14/2025 05/14/2024, 05/14/19 SDOH Screening 05/14/2025 05/14/2024 Lipid Panel 06/28/2025 06/28/2024, 05/0 04/2023, 05/13/2022, Additional history exists Tobacco Screening 09/27/2025 09/27/2024 DTaP/Tdap/Td Vaccines (2 - Td or Tdap) 02/02/2032 02/01/2022, 04/01/2011, 05/21/1997, Additional history exists Pneumococcal Vaccine: 50+ Years Completed 04/13/2017, 03/06/2015, 10/24/2000 Influenza Vaccine Completed 12/11/2024, , 01/01/2021, Additional history exists HIB Vaccines Aged Out No longer eligi ble based on patient's age to complete this topic HPV Vaccines Aged Out No longer eligi ble based on patient's age to complete this topic Hepatitis A Vaccines Aged Out No long er eligible based on patient's age to complete this topic IPV Vaccines Aged Out No longer eligi ble based on patient's age to complete this topic Meningococcal B Vaccine Aged Out No l onger eligible based on patient's age to complete this topic Meningococcal Vaccine Aged Out No anastasia hunter eligible based on patient's age to complete this topic RSV under 20 months Aged Out No longe r eligible based on patient's age to complete this topic Rotavirus Vaccines Aged Out No longer eligible based on patient's age to complete this topic Procedures Procedure Name Priority Date/Time Associated Diagnosis Comments POCT GLYCATED HEMOGLOBIN, TOTAL Routine 08/16/2024 11:01 AM EDT Type 2 diabetes mellitus without complication, with long-term current use of insulin ([facility]) LIPID PANEL, STANDARD Routine 06/28/2024 8:15 AM EDT Mixed hyperlipidemia BI MAMMOGRAM SCREENING TOMOSYNTHESIS BILATERAL Routine 11/14/2023 1:40 PM EDT ALBUMIN, RANDOM URINE W/CREATININE Routine 07/20/2023 9:44 AM EDT Essential hypertension Type 2 diabetes mellitus without complication, with long-term current use of insulin ([facility]) from Last 3 Months or Most Recently Relevant to Health Maintenance Results * (ABNORMAL) POCT HGB A1C (08/16/2024 11:01 AM EDT) Hemoglobin A1C 6.9(A) 4.0 - 6.0 % QC Media Lot # [id number] Lot# Expiration Date Blood 08/16/2024 11:0 1 AM EDT Bradly Mendoza MD POINT OF CARE TEST EN TER/EDIT ORDERABLES Final Result * Lipid Panel, Standard (06/28/2024 8:15 AM EDT) Triglycerides 131 <150 mg/dL [facility] Comment:Desirable Triglyceri de: less than 150 mg/dLBorderline High Triglyceride 150-199 mg/dLHigh Triglyceride: 200-499 mg/dLVery High Triglyceride: greater than or equal to 5OO mg/dL Cholesterol 125 <200 mg/dL [facility] Comment:Desirable Cholestero l: less than 200 mg/dLBorderline High Cholesterol: 200-239 mg/dLHigh Cholesterol: greater than 239 mg/dL LDL Cholesterol Calculated 55 <100 mg/dL [facility] Comment:Desirable LDL: less than 100 mg/dLNear Optimal/Above Optimal LDL: 110- 129 mg/dLBorderline High LDL: 130-159 mg/dLHigh LDL: 160-189 mg/dLVery High LDL: greater than or equal to 190 mg/dL HDL Cholesterol 44 >40 mg/dL [facility] Comment:Desirable HDL: great er than 40 mg/dL Note: This HDL assay may give artificially low results in patients with liver disease. Blood Venous blood specimen / Unknown 06/28/2024 8:15 AM EDT 06/28/2024 11:26 AM EDT us Bradly Mendoza MD LAB BLOOD ORDERABLES Final Result [facility] [address] [place] [phone] * BI Mammogram Screening Tomosynthesis Bilateral (11/14/2023 1:40 PM EDT) Anatomical Region Laterality Modality Breast Bilateral Mammography 11/14/2023 1:4 0 PM EDT Narrative 12/08/2023 3:20 PM EDT [facility] [address] [place] [address] Mammography Report Signed Patient: Wendy Simons MR#: [id number] [birth year] : 1945 Acct:[id number] Age/Sex: 78 / F ADM Date: 11/14/23 Loc: HO.MAMMO Attending Dr: Bradly Maddox MD Ordering Physician: Bradly Maddox MD Resu lts: 2Benign Findings Date of Service: 11/14/23 Follow Up: 1 Year From Orig ina Mammogram Procedure(s): MM tomosynthesis screening BI Accession Number(s): [id number] cc: Bradly Maddox MD EXAMINATION: MM SCREENING DIGITAL BREAST TOMOSYNTHESIS, BILATERAL CLINICAL INFORMATION: Screening. Asymptomatic. COMPARISON: Mammography: Comparison is made with available priors TECHNIQUE: Digital breast tomosynthesis is performed in both the craniocaudal and mediolateral oblique views along with computer-aided detection (CAD). Synthesized 2D images are generated from the tomosynthesis. FINDINGS: The breasts are heterogeneously dense, which may obscure small masses (ACR BI-RADS breast composition Category c). Left marker clip. There are no significant masses, abnormal calcifications, or other abnormalities. MM/MM tomosynthesis screening BI IMPRESSION: No mammographic evidence of malignancy. ASSESSMENT: BI-RADS BI-RADS 2 - Benign Findings RECOMMENDATION: Routine annual mammography screening. 1 year F/U This examination should not preclude the clinical evaluation of a suspicious palpable abnormality. This patient's information was entered into a reminder system with a target due date for their next mammogram. Electronically signed by: Earlene Marvin DO 12/08/2023 03:17 PM EDT Dictated By: Earlene Marvin DO Signed By: <Electronically signed by Earlene Marvin DO in OV> 12/08/23 1517 DD/ 1340 TD/TT: 11/14/[address] Auditor: Procedure Note Donotuseinterpreter, Image - 12/08/2023 [facility] [address] [place], [place] [address] Mammography Report Signed Patient: Eloy Simons#: [id number] 84 : 8Acct:[id number] Age/Sex: 78 / FADM Date: 11/14/23 Loc: HO.MAMMO Attending Dr: Bradly Maddox MD Ordering Physician: Bradly Maddox MDResu lts: 2Benign Findings Date of Service: 11/14/23Follow Up: 1 Year From Orig ina Mammogram Procedure(s): MM tomosynthesis screening BI Accession Number(s): [id number] cc: Bradly Maddox MD EXAMINATION: MM SCREENING DIGITAL BREAST TOMOSYNTHESIS, BILATERAL CLINICAL INFORMATION: Screening. Asymptomatic. COMPARISON: Mammography: Comparison is made with available priors TECHNIQUE: Digital breast tomosynthesis is performed in both the craniocaudal and mediolateral oblique views along with computer-aided detection (CAD). Synthesized 2D images are generated from the tomosynthesis. FINDINGS: The breasts are heterogeneously dense, which may obscure small masses (ACR BI-RADS breast composition Category c). Left marker clip. There are no significant masses, abnormal calcifications, or other abnormalities. MM/MM tomosynthesis screening BI IMPRESSION: No mammographic evidence of malignancy. ASSESSMENT: BI-RADS BI-RADS 2 - Benign Findings RECOMMENDATION: Routine annual mammography screening. 1 year F/U This examination should not preclude the clinical evaluation of a suspicious palpable abnormality. This patient's information was entered into a reminder system with a target due date for their next mammogram. Electronically signed by: Earlene Marvin DO 12/08/2023 03:17 PM EDT Dictated By: Earlene Marvin DO Signed By: <Electronically signed by Earlene Marvin DO in OV> 12/08/23 1517 DD/ 1340 TD/TT: 11/14/23 1355 [address] Auditor: us Bradly Mendoza MD IMG BI PROCEDURES [facility]on osman Result - Final * (ABNORMAL) Albumin, Random Urine W/Creatinine (07/20/2023 9:44 AM EDT) Creatinine, Urine 65.60 mg/dL [facility] Microalbumin Urine 921.0 mg/L [facility] Microalbum Creatinine Ratio Ur 1,403.9(H ) <30 ug/mg cr [facility] Comment:Albumin/Creatinine R atio Reference Ranges: Normal: < 30 ug/mg creatinine Microalbuminuria: 30 - 300 ug/mg creatinineClinical Albuminuria: > 300 ug/mg creatinine Urine (Urine, Random) 07/20/2023 9:44 AM EDT 07/20/2023 11:23 AM EDT Bradly Mendoza MD LAB URINE ORDERABLES Final Result Performing Organization Address City/State/[facility] Co de Phone Number [facility] [address] [place] [address] [phone] from Last 3 Months or Most Recently Relevant to Health Maintenance Insurance Care Teams Log Preparer Relationship Specialty Start Date End Date Bradly Craig MD [address] [place] [address] PCP - General Internal Medicine 10/30/13
--- OUTSIDE RECORDS SUMMARY | 2025-01-16 14:58 | XMS_ITS | Encounter Summary ---
Author Organization [employer] Address [address] [place] [address] Care Team Providers Care Assistant Buyer Name Role Phone Bradly Craig MD Primary Care Provide r Margaret Murphy PharmD Unavailable [phone] Encounter Details Date Type Department Care Team ([facility] st Contact Info) Description 09/28/2024 Orders Only [facility] [address] [place], [place] [phone] Aggie Yancey MD [address] [place], [place] [phone] Social History Tobacco Use Types Packs/Day Years Used Date Smoking Tobacco: Never Passive Smoke Exposure: Never Smokeless Tobacco: Never Alcohol Use Standard Drinks/Week Comments Never 0 [...] Noted Time PHQ-9 Depression Total Score: 0 05/14/19 10:55 AM EST documented as of this encounter Care Teams Assistant Buyer Relationship Specialty Start Date End Date Bradly Craig MD [address] [place] [address] PCP - General Internal Medicine 10/30/13 Margaret Murphy PharmD [address] [place] [phone] Pharmacist Internal Medicine 04/22/24 12/10/24 documented as of this encounter
== END 2025-01-16 14:36 | disposition home or self-care (01) ==
PROVIDERS: Emergency Provider Emergency Medicine; PCP Internal Medicine
DX: E86.0 Dehydration (principal); H81.399 Other peripheral vertigo, unspecified ear; R11.2 Nausea with vomiting, unspecified; R19.7 Diarrhea, unspecified; Z03.818 Encounter for observation for suspected exposure to other biological agents ruled out
CPT/HCPCS: 80053; 83735; 85025; 87637; 93005; 99283

== ENCOUNTER → 2025-01-16 12:28 | Outpatient (BNV) | payer OTHER, SELFPAY | PROVIDERS: Emergency Provider Emergency Medicine; PCP Internal Medicine; Visit Provider Internal Medicine | DX: R94.31 Abnormal electrocardiogram [ECG] [EKG] (principal); R55 Syncope and collapse | CPT/HCPCS: 93010 ==